=== PATIENT | female | born 1975 ===

== ENCOUNTER 2021-09-15 20:28 | Emergency (ER) | payer BC ==
[~2021-09-15] VITALS: Ht 162.6 cm; Wt 65.8 kg
[~2021-09-15 20:28] MED LIST: ALPR.5 PO; CEFP500 PO; CELE200 PO; CODITUSSIN AC473 ML PO; DULO30 PO; ESZO2 PO; Esgic Tablet1 EACH PO; HYDR1TAB94 PO; METO50ER PO; NEBI5 PO; Norflex100 MG; ONDA4 PO; PANT40 PO; PHENDIMETRAZINE PO; PROCODE120; PROM25 PO; SUCR1 PO; TEMA30; TRIHYD253A PO; Zofran8 MG PO; [UNRECOGNIZED DRUG - OTHER]
[2021-09-15] MEDS ORDERED: NEURONTIN300 MG PO (21:23)
[2021-09-15] MEDS ORDERED: ZOLP5 PO (21:24)
[2021-09-15] MEDS ORDERED: Cyclobenzaprine5 MG PO (22:21)
== END 2021-09-15 22:43 | disposition home or self-care (01) ==
LOC: ER 20:28
DX: M62.838 Other muscle spasm (principal); M25.511 Pain in right shoulder; M19.90 Unspecified osteoarthritis, unspecified site; Z88.1 Allergy status to other antibiotic agents; Z79.899 Other long term (current) drug therapy
CPT/HCPCS: 36415; 96372; 96374; 96375; 99283-25; A9270; J1170; J1790; J1885; J2405

== ENCOUNTER 2022-02-21 09:19 | Emergency (ER) | payer BC ==
[~2022-02-21] VITALS: Ht 162.6 cm; Wt 70.3 kg
[~2022-02-21 09:19] MED LIST changes: +Cyclobenzaprine5 MG PO; +NEURONTIN300 MG PO; +ZOLP5 PO
[2022-02-21] MEDS ORDERED: OXYC5 PO (10:18)
== END 2022-02-21 10:29 | disposition home or self-care (01) ==
LOC: ER 09:19
DX: M25.511 Pain in right shoulder (principal); G43.909 Migraine, unspecified, not intractable, without status migrainosus; Z98.890 Other specified postprocedural states; Z79.899 Other long term (current) drug therapy
CPT/HCPCS: A9270; J1885

== ENCOUNTER 2023-08-22 02:17 | Emergency (ER) | payer OTHER ==
[~2023-08-22] VITALS: Ht 162.6 cm; Wt 77.1 kg
[~2023-08-22 02:17] MED LIST changes: +OXYC5 PO
[2023-08-22 02:53] VITALS: BP 120/85
[2023-08-22] MEDS ORDERED: NIFE10 (02:56)
[2023-08-22] MEDS ORDERED: METHOTREXATE2.510 PO (02:56)
[2023-08-22] MEDS ORDERED: CELEBREX200 MG (02:56)
[2023-08-22 04:32] LABS: Alanine Aminotransfer (ALT/SGP 25 U/L (12-78); Albumin, Blood 3.9 g/dL (3.4-5.0); Albumin/Globulin Ratio 1.1 (0.8-1.8); Alk Phos 83 U/L (50-136); Anion Gap 6 mmol/L (6-16); Aspartate Aminotrans (AST/SGOT 30 U/L (12-37); Bilirubin, Direct <0.1 mg/dL (0.0-0.3); Bilirubin, Indirect Unable to Calculate mg/dL (0.1-0.7); Bilirubin, Total 0.5 mg/dL (0.1-1.0); Blood Urea Nitrogen 9 mg/dL (8-24); Bun/Creatinine Ratio 8.7 (12.0-20.0); CO2, Blood 26 mmol/L (21-32); Calcium, Blood 9.3 mg/dL (8.5-10.1); Chloride, Blood 109 mmol/L (98-108); Creatinine, Blood 1.03 mg/dL (0.40-1.00); Globulin, Blood 3.7 g/dL (2.2-4.0); Glomerular Filtration Rate 67 (60-); Glucose, Blood 103 mg/dL (70-99); Potassium, Blood 4.3 mmol/L (3.5-5.5); Sodium, Blood 141 mmol/L (136-145); Total Protein, Blood 7.6 g/dL (6.4-8.2)
[2023-08-22 04:39] LABS: BASOPHILS ABSOLUTE AUTO 0.03 K/mm3 (0.00-0.23); BASOPHILS PERCENT AUTO 0 % (0-2); EOSINOPHILS ABSOLUTE AUTO 0.11 K/mm3 (0.00-0.68); EOSINOPHILS PERCENT AUTO 1 % (0-6); Hematocrit 33.5 % (33.0-51.0); Hemoglobin 10.7 g/dL (11.5-16.0); IMMATURE GRAN ABSOLUTE AUTO 0.02 K/mm3 (0.00-0.10); IMMATURE GRAN PERCENT AUTO 0 % (0-1); LYMPHOCYTES ABSOLUTE AUTO 1.31 K/mm3 (0.84-5.20); LYMPHOCYTES PERCENT AUTO 17 % (21-46); MONOCYTES PERCENT AUTO 8 % (4-13); Mean Corpuscular HGB 31.7 pg (26.0-34.0); Mean Corpuscular HGB Conc 31.9 g/dL (31.5-36.5); Mean Corpuscular Volume 99 fL (80-100); Mean Platelet Volume 10.5 fL (9.1-12.4); NEUTROPHILS ABSOLUTE AUTO 5.82 K/mm3 (1.96-9.15); NEUTROPHILS PERCENT AUTO 74 % (41-73); Platelet Count 266 K/mm3 (150-400); RDW Standard Deviation 50.3 fL (35.1-46.3); Red Blood Cell Count 3.38 M/mm3 (3.80-5.20); White Blood Cell Count 7.89 K/mm3 (4.00-11.30)
[2023-08-22] MEDS ORDERED: DICY20 PO (06:05)
== END 2023-08-22 06:16 | disposition home or self-care (01) ==
LOC: ER 02:17
PROVIDERS: Student in an Organized Health Care Education/Training Program
DX: K59.00 Constipation, unspecified (principal); R10.84 Generalized abdominal pain; Z88.1 Allergy status to other antibiotic agents; Z88.8 Allergy status to other drugs, medicaments and biological substances; Z79.899 Other long term (current) drug therapy
CPT/HCPCS: 51798; 74177; 80048; 80076; 83690; 85025; 96374-59; 99284-25; A9270; J1885; Q9967